=== PATIENT | female | born 1945 | race Caucasian/White ===

== ENCOUNTER 2021-12-12 07:16 | Outpatient (CLI) | payer MEDICARE, OTHER, SELFPAY | END 2021-12-12 07:17 | disposition home or self-care (01) | PROVIDERS: PCP Family Medicine; Visit Provider Family Medicine | DX: M54.16 Radiculopathy, lumbar region (principal); M48.062 Spinal stenosis, lumbar region with neurogenic claudication; M51.36 Other intervertebral disc degeneration, lumbar region | CPT/HCPCS: 62323; J0702; Q9966 ==

== ENCOUNTER 2022-07-03 09:03 | Outpatient (CLI) | payer MEDICARE, OTHER, SELFPAY | END 2022-07-03 09:04 | disposition home or self-care (01) | LOC: INJ CL 09:06 | PROVIDERS: PCP Family Medicine; Visit Provider Family Medicine | DX: M54.16 Radiculopathy, lumbar region (principal); M51.36 Other intervertebral disc degeneration, lumbar region | CPT/HCPCS: 62323; J0702; Q9966 ==

== ENCOUNTER 2023-01-22 09:08 | Outpatient (CLI) | payer MEDICARE, OTHER, SELFPAY | END 2023-01-22 09:09 | disposition home or self-care (01) | LOC: INJ CL 09:10 | PROVIDERS: Visit Provider Family Medicine | DX: M54.16 Radiculopathy, lumbar region (principal); M48.062 Spinal stenosis, lumbar region with neurogenic claudication; M51.36 Other intervertebral disc degeneration, lumbar region | CPT/HCPCS: 62323; J1100; Q9966 ==

== ENCOUNTER 2023-09-10 09:32 | Outpatient (CLI) | payer MEDICARE, OTHER, SELFPAY | END 2023-09-10 09:33 | disposition home or self-care (01) | LOC: INJ CL 09:34 | PROVIDERS: Visit Provider Family Medicine | DX: M54.16 Radiculopathy, lumbar region (principal); M51.36 Other intervertebral disc degeneration, lumbar region | CPT/HCPCS: 62323; J0702; Q9966 ==

== ENCOUNTER 2023-10-30 13:45 | Outpatient (RCR) | payer MEDICARE, OTHER, SELFPAY | END 2024-02-27 23:59 | disposition home or self-care (01) | PROVIDERS: Visit Provider Family Medicine | DX: M54.16 Radiculopathy, lumbar region (principal); M48.062 Spinal stenosis, lumbar region with neurogenic claudication; M43.16 Spondylolisthesis, lumbar region; M53.3 Sacrococcygeal disorders, not elsewhere classified; M76.61 Achilles tendinitis, right leg; R26.9 Unspecified abnormalities of gait and mobility; Z74.09 Other reduced mobility; Z51.89 Encounter for other specified aftercare | CPT/HCPCS: 97110; 97140; 97161 ==

== ENCOUNTER 2023-12-03 09:47 | Outpatient (CLI) | payer MEDICARE, OTHER, SELFPAY | END 2023-12-03 09:48 | disposition home or self-care (01) | LOC: INJ CL 09:49 | PROVIDERS: PCP Family Medicine; Visit Provider Family Medicine | DX: M54.16 Radiculopathy, lumbar region (principal); M51.36 Other intervertebral disc degeneration, lumbar region | CPT/HCPCS: 62323; J0702; Q9966 ==

== ENCOUNTER 2024-04-14 13:05 | Outpatient (CLI) | payer MEDICARE, OTHER, SELFPAY | END 2024-04-14 13:06 | disposition home or self-care (01) | LOC: INJ CL 13:06 | PROVIDERS: PCP Family Medicine; Visit Provider Family Medicine | DX: M54.16 Radiculopathy, lumbar region (principal); M51.369 Other intervertebral disc degeneration, lumbar region without mention of lumbar back pain or lower extremity pain | CPT/HCPCS: 62323; J0702; Q9966 ==

== ENCOUNTER 2024-12-01 13:01 | Outpatient (CLI) | payer MEDICARE, OTHER, SELFPAY | END 2024-12-01 13:02 | disposition home or self-care (01) | LOC: INJ CL 13:02 | PROVIDERS: Visit Provider Family Medicine | DX: M54.16 Radiculopathy, lumbar region (principal); M48.062 Spinal stenosis, lumbar region with neurogenic claudication; M51.369 Other intervertebral disc degeneration, lumbar region without mention of lumbar back pain or lower extremity pain | CPT/HCPCS: 62323; Q9966 ==

== ENCOUNTER 2025-02-10 10:49 | Outpatient (CLI) | payer MEDICARE, OTHER, SELFPAY ==
[2025-02-10 10:55] VITALS: BP 116/74; PULSE 65; RESP 16; TEMP 36.4; O2SAT 94
[2025-02-10 12:05] VITALS: BP 136/57; PULSE 58; RESP 16; O2SAT 94
--- NOTE | 2025-02-10 12:07 | PM.PROC ---
Procedure Note Time Seen by Provider: 11:30 Date Seen: 02/10/25 Provider Contact Time: 12:15 Date of procedure: 02/10/25 Will [facility] bill your pro fee for this procedure?: Yes Procedure: CRYONEUROLYSIS TREATMENT REPORT REFERRING PROVIDER: Kedar Sosa TREATMENT PROVIDER: Iglesia Agudelo PREOPERATIVE DIAGNOSIS: Left knee osteoarthritis POSTOPERATIVE DIAGNOSIS: Left knee osteoarthritis? PROCEDURE: Cryoneurolysis of Multiple Sensory Nerves of the Knee ANESTHESIA: Local INDICATIONS: The patient is a very pleasant 79-year-old female patient with primary osteoarthritis involving the left knee who presents today for cryoneurolysis of multiple sensory nerves to the knee for severe knee pain.?Patient medical history was reviewed. The risks, benefits, treatment alternatives, and complications were discussed with the patient, including but not limited to bleeding, infection, nerve or tissue damage.?Informed consent was obtained. ? PRE-TREATMENT MOTOR ASSESSMENT/PAIN SCORE: Patient was able to demonstrate intact gross motor function with plantarflexion, dorsiflexion, adduction, abduction, hip flexion, and extension of the lower extremity.?Pre-treatment pain score of 5 out of 10 in the left knee. DESCRIPTION OF PROCEDURE: After obtaining informed consent, the patient was brought back to the treatment room and positioned supine on the table.?The left lower extremity was prepped with Chlorhexadine.?We began the procedure by performing our procedural pause.?Once this was completed and verified to be accurate, I began the procedure by identifying the nerves with the use of bedside ultrasound.?After the nerves were identified, the skin was marked and, using 1% lidocaine plain, the area of the nerves were anesthetized. ? After the anesthetic was administered, the Smart Tip 2190 cryoneurolysis needle was inserted into the treatment sites using ultrasound guidance.?Treatment was then initiated on the left lower extremity with the following nerves treated: Superior, superior medial, superior lateral, inferior medial genicular nerves and the infrapatellar branch of the saphenous nerve. At the termination of the treatment, the cryoneurolysis needle was removed with the patient's skin cleansed and Band-Aids and compression dressing applied. Patient tolerated the procedure without any incident or concern.? Patient was then instructed to stand, mobilize the joint, and was examined to ensure gross motor skills were intact. COMPLICATIONS: None POST-TREATMENT PAIN SCORE: 0 out of 10 in the left knee DISPOSITION: Discharge instructions were given to the patient with education on the post-procedure expectations. Patient was instructed to call the Ortho clinic with any post-procedure concerns or questions.
== END 2025-02-10 12:10 | disposition home or self-care (01) ==
LOC: OP CLINIC 10:49
PROVIDERS: Visit Provider Nurse Anesthetist, Certified Registered
DX: M17.12 Unilateral primary osteoarthritis, left knee (principal)
CPT/HCPCS: 64640; 76942; C9809

== ENCOUNTER 2025-02-18 08:43 | Day surgery (SDC) | payer MEDICARE, OTHER, SELFPAY ==
[2025-02-18] VITALS (21 sets, daily range): BP systolic 95–161; BP diastolic 46–98; PULSE 48–86; RESP 16–20; TEMP 36.1–36.8; O2SAT 91–99; BMI 27.3
[2025-02-18] MEDS: LACTATED RINGERS 1000 ML 1,000 ML 100 ML IV ×2 (08:50→12:08)
[2025-02-18] MEDS: SODIUM CHLORIDE 0.9 % (FLUSH) 10 ML SYRINGE IVF (09:15)
[2025-02-18] MEDS: OXYCODONE (CR) 10 MG TAB.ER.12H PO (09:25)
[2025-02-18] MEDS: ACETAMINOPHEN 500 MG TABLET 1000 MG PO ×3 (09:25→23:00)
[2025-02-18] MEDS: MIDAZOLAM HCL 1 MG/ML inj IVP (09:32)
--- NOTE | 2025-02-18 09:34 | SUR.PREOP ---
TIME?OUT:?0930 PT/RN/MDA?VERIFICATION?OF?SURGICAL?SITE,?PROCEDURE,?AND?CONSENT OBTAINED?PRIOR?TO?INVASIVE?PROCEDURE.
--- NOTE | 2025-02-18 10:05 | W.PM.H&PU ---
History & Physical Update History & Physical Update H&P Reviewed and patient assessed: No changes noted
--- NOTE | 2025-02-18 10:07 | CRLHL7_ITS ---
For Patients: As a result of the Century Cures Act, medical imaging exams and procedure reports are released immediately into your electronic medical record. You may view this report before your referring provider. If you have questions, please contact your health care provider. Indication: Postop Technique: Two views left knee Findings/Impression: Hardware from a left total knee arthroplasty is in satisfactory position. Bone alignment is normal. No sign of acute fracture. Postop changes are within normal limits. Chronic changes to the patella. Dictated by Nacho Lisa MD @ 02/19/2025 8:46:58 AM (Electronically Signed)
[2025-02-18] MEDS: TRANEXAMIC ACID 100 MG/ML INJ 1000 MG IV (10:15)
--- NOTE | 2025-02-18 10:38 | P.NB_ITS ---
Nerve Block Nerve Block Time Seen by Provider: 09:30 Date Seen: 02/18/25 Type of block requested by surgeon for post-operative analgesia: geniculars Side: left Time out performed: Yes Verification of patient name: Yes Verification of date of : Yes Site marking: site marked Name of person performing procedure: Magnus Continuous monitoring Was continuous monitoring of O2 sat, B/P, cardiac nurse, recorded every 15 minutes?: Yes Procedure Checklist: sterile prep, needles and gloves Ultrasound guided. Images saved: Yes Medications given in 5ml increments after negative aspiration: Marcaine %: 0.25 mL: 9 Needle gauge: 25 Patient tolerated procedure well: Yes Block Charges Block Charge (with Pro Fee): Genicular Nerve Block
--- NOTE | 2025-02-18 10:39 | P.ANES_ITS ---
Anesthesia Charges Start Date/Time Anesthesia Start Date: 02/18/25 Anesthesia Start Time: 09:58 Stop Date/Time Anesthesia Stop Date: 02/18/25 Anesthesia Stop Time: 12:17 Summary Extremes of Age - Over 70 or under 1: MDA Coding CPT Codes CPT Codes: ANESTH KNEE ARTHROPLASTY - 54241 ([id number]) P3 - PATIENT W/SEVERE SYS DISEASE, QK - MOUNTER AUTOMATIC 2-4 CNCRNT ANES PROC, QX - A AUXILIARY SVC W/ MD MED DIRECTION Additional Codes: Summary - Extremes of Age - Over 70 or under 1: MDA ([id number])
--- NOTE | 2025-02-18 10:39 | P.NB_ITS ---
Nerve Block Nerve Block Time Seen by Provider: 09:30 Date Seen: 02/18/25 Type of block requested by surgeon for post-operative analgesia: adductor canal Side: left Time out performed: Yes Verification of patient name: Yes Verification of date of : Yes Site marking: site marked Name of person performing procedure: Magnus Continuous monitoring Was continuous monitoring of O2 sat, B/P, playground monitor, recorded every 15 minutes?: Yes Procedure Checklist: sterile prep, needles and gloves Ultrasound guided. Images saved: Yes Medications given in 5ml increments after negative aspiration: Marcaine %: 0.25 mL: 15 Needle gauge: 20 Precedex (mcg): 25 Patient tolerated procedure well: Yes Block Charges Block Charge (with Pro Fee): Femoral Nerve Use of Ultrasound Machine for Block: Yes- US Guidance/pain block
--- NOTE | 2025-02-18 10:39 | W.ANESCHARGE ---
Anesthesia Charges Start Date/Time Anesthesia Start Date: 02/18/25 Anesthesia Start Time: 09:58 Stop Date/Time Anesthesia Stop Date: 02/18/25 Anesthesia Stop Time: 12:17 Summary Extremes of Age - Over 70 or under 1: MDA Coding CPT Codes CPT Codes: ANESTH KNEE ARTHROPLASTY - 99745 ([id number]) P3 - PATIENT W/SEVERE SYS DISEASE, QK - COAL GRADER 2-4 CNCRNT ANES PROC, QX - ROCK BREAKER SVC W/ MD MED DIRECTION Additional Codes: Summary - Extremes of Age - Over 70 or under 1: MDA ([id number])
--- NOTE | 2025-02-18 11:29 | P.ORPRC_ITS ---
Procedure Note Date of procedure: 02/18/25 Procedure: PREOPERATIVE DIAGNOSIS: 1. Left knee osteoarthritis, secondary, severe POSTOPERATIVE DIAGNOSIS: 1. Left knee osteoarthritis, secondary, severe PROCEDURE: 1. Left total knee arthroplasty - subvastus; limited tourniquet SURGEON: Jerzy Collins MD. PRODUCT SCIENTIST: Claudia Bell PA-C - Of note, a skilled assistant director of security was critical for this case to aid in patient positioning, tissue retraction, limb manipulation/positioning, and closure. ANESTHESIA: Spinal anesthetic EBL: 50ml IMPLANTS: DePuy J&J all cemented TKA - Attune PS femur size 5 narrow Size 3 tibia 5 mm poly spacer 32 mm patella TOURNIQUET: 30 minutes at 225 torr COMPLICATIONS: None evident INDICATIONS: The patient is a pleasant 79-year-old female who has experienced severe left knee pain and difficulty bearing weight. Workup included x-rays which revealed severe osteoarthrosis in the knee. Given the deformity, the dysfunction, and the pain, as well as the failure of nonoperative management, recommendation was made for surgery. FINDINGS: Full-thickness chondral loss patellofemoral compartment. To lesser degree medial and lateral compartments. Degenerative meniscus tearing medial greater than lateral. Small effusion upon entering the joint. DESCRIPTION OF PROCEDURE: Following a thorough discussion of risks, benefits, and alternatives consent was obtained and the left knee was marked. The patient was brought to the operating room and placed supine on the operating table. Induction of anesthesia was undertaken. 1 g IV Ancef and 1 g tranexamic acid was administered within 1 hr of incision preoperatively. Proper time-out was performed identifying proper patient, site, procedure. The operative extremity was prepped and draped in the appropriate sterile fashion using ChloraPrep after the patient was positioned supine with all bony prominences well padded. A longitudinal, anterior, midline skin incision was made starting approximately 3cm proximal to the superior pole of the patella and advanced distal to the tibial tubercle. A subvastus approach was utilized. A medial subperiosteal sleeve was created with knife, martinez elevator and curved osteotome. The re tropatellar fatpad was resected and the synovium in the suprapatellar pouch excised to visualize the anterior femoral cortex. Femoral preparation was performed via an intramedullary guide. Step drill allowed access into the femoral canal. The distal cutting guide was placed with 5? of valgus and 11 mm cut on the distal femur due to mild chondral layer. Femur was sized using a anterior referencing guide in 3? of external rotation. This found have a best fit with the sizing noted above. The 4 in 1 cutting block was then placed, and the distal femur shaped accordingly. The box cut was then created and the trial implant inserted to confirm appropriate fit. We turned our attention to the proximal tibia. Extramedullary guide was utilized for cutting with the goal of being 90 degree cut from the mechanical axis of the tibia in the varus/valgus plane utilizing tibial crest as the primary alignment. Initially a 4 mm resection was performed from the medial tibial plateau. An additional 2mm did require resection to achieve appropriate balance. Ultimately, balancing was achieved in both flexion and extension in both varus and valgus. The knee was able to achieve full extension as well comfortably. The patella was initially measured and found have a thickness of 20 mm. It was resected back to approximately 14 mm. It was sized to be a best fit with as noted above. This was drilled, trial placed. All trials were placed and found to have an excellent stability and balance. At this stage, trial implants were removed, the knee was thoroughly irrigated with normal saline, and the cement was mixed. After irrigation, the knee was thoroughly dried, and cement placed, with the real tibial and femoral implants placed along with the patella. Trial poly spacer was placed and confirmed to have excellent range of motion and full extension, and the real poly spacer opened and inserted. All extra cement was removed, and a 3 min Betadine soak performed. Finally, a final irrigation round with normal saline was performed. Of note, prior to closure we did encounter Ethibond sutures from the previous patella ORIF type procedure. We did remove these at the month sutures on the inferior pole of the patella arc. Closure performed with 0 PDS and #0 Stratafix for the quad tendon/retinaculum. 2-0 Vicryl/Stratafix for the subcutaneous and 4-0 Monocryl for subcuticular closure. Dressings were applied and the patient was awoken from anesthesia after the tourniquet deflated and transferred the PACU in stable condition. A skilled assistant director of security was critical for this case to aid in patient positioning, tissue retraction, bone exposure, limb manipulation/positioning, patient safety, and closure. PLAN: 1. Weight bear as tolerated operative extremity. 2. 23 hr perioperative antibiotics. 3. Ice. 4. PT/OT consults for ambulation assistance/mobility education. 5. Social work consult for discharge planning. 6. DVT prophylaxis with at SCDs and aspirin twice daily.
--- NOTE | 2025-02-18 12:17 | P.ANES_ITS ---
Anesthesia Charges Start Date/Time Anesthesia Start Date: 02/18/25 Anesthesia Start Time: 09:58 Stop Date/Time Anesthesia Stop Date: 02/18/25 Anesthesia Stop Time: 12:17 Coding CPT Codes CPT Codes: ANESTH KNEE ARTHROPLASTY - 50429 ([id number]) P3 - PATIENT W/SEVERE SYS DISEASE, QK - HUMAN RESOURCES DIRECTOR 2-4 CNCRNT ANES PROC, QX - HUMANITIES AND LANGUAGES PROFESSOR SVC W/ MD MED DIRECTION
--- NOTE | 2025-02-18 12:17 | W.ANESCHARGE ---
Anesthesia Charges Start Date/Time Anesthesia Start Date: 02/18/25 Anesthesia Start Time: 09:58 Stop Date/Time Anesthesia Stop Date: 02/18/25 Anesthesia Stop Time: 12:17 Coding CPT Codes CPT Codes: ANESTH KNEE ARTHROPLASTY - 61725 ([id number]) P3 - PATIENT W/SEVERE SYS DISEASE, QK - NEUROSURGERY PHYSICIAN 2-4 CNCRNT ANES PROC, QX - SAUSAGE LINKER SVC W/ MD MED DIRECTION
--- NOTE | 2025-02-18 15:00 | PC.NURSE ---
Pt arrived to the unit @ 1245. Pt AxOx3, cooperative, and pleasant with cares. LSCTA, RA. CMS remains intact. Able to wiggle toes. Op site remains CDI, active ice applied. PRN medication given for pain. Pt tolerating advanced diet well, eating jello and ice cream. Drinking fluids. LR running @ 75 ml/hr. at bedside. SCDs in place. Call light and belongings within reach.
[2025-02-18] MEDS: CEFAZOLIN 1 GM in 0.9 % SODIUM CHLORIDE Mini-bag 100 ML IVPB (15:43)
--- NOTE | 2025-02-18 15:54 | PM.IMCN1 ---
Date of Consult Patient: Other Consult date: 02/18/25 Requesting Physician: Orthopedics Primary Care Provider: [facility] Consult Narrative Reason for consult: Medical management Narrative: Wendy Masters is a 79 year old female past medical history significant for hypertension, hyperlipidemia, anxiety, macular degeneration, history of stroke 10/01/2022, carotid artery angioplasty 10/03/2022 is POD#0 s/p left total knee arthroplasty, Dr. Collins. There have been no perioperative complications or nursing concerns reported. Estimated total blood loss documented as 50 ml. Updated and reviewed the active medical problems, past medical history, past surgical history, social history, allergies and medications in our electronic EMR. Postoperatively, patient is seen sitting up in bed, ordering dinner. Appears very comfortable but reports her pain is increasing by the second. Denies headache or dizziness. Denies chest pain or shortness of breath. Tolerating orals without nausea or vomiting. Review of Systems Narrative: REVIEW OF SYSTEMS: Complete review of systems performed and negative unless otherwise stated in HPI or below. PFSH PFS Medical History Ischemic stroke (~09/2022) ?I63.9 - Cerebral infarction, unspecified (ICD-10) Mixed hyperlipidemia ?E78.2 - Mixed hyperlipidemia (ICD-10) Primary hypertension ?I10 - Essential (primary) hypertension (ICD-10) Generalized anxiety disorder ?F41.1 - Generalized anxiety disorder (ICD-10) Major depression in full remission ?F32.5 - Major depressive disorder, single episode, in full remission (ICD-10) Osteopenia ?M85.80 - Other specified disorders of bone density and structure, unspecified site (ICD-10) Macular degeneration (~2018) ?H35.30 - Unspecified macular degeneration (ICD-10) History of eczema ?Z87.2 - Personal history of diseases of the skin and subcutaneous tissue (ICD-10) History of sinus tachycardia (2010) ?Z86.79 - Personal history of other diseases of the circulatory system (ICD-10) History of TMJ disorder ?Z87.39 - Personal history of other diseases of the musculoskeletal system and connective tissue (ICD-10) Seasonal allergies ?J30.2 - Other seasonal allergic rhinitis (ICD-10) Chronic low back pain ?M54.50 - Low back pain, unspecified (ICD-10) ?G89.29 - Other chronic pain (ICD-10) Surgical History History of left knee replacement (02/18/25) ?Z96.652 - Presence of left artificial knee joint (ICD-10) History of carotid endarterectomy ?Z98.890 - Other specified postprocedural states (ICD-10) History of phacoemulsification of cataract of both eyes with intraocular lens implantation (2015) ?Z98.41 - Cataract extraction status, right eye (ICD-10) ?Z98.42 - Cataract extraction status, left eye (ICD-10) ?Z96.1 - Presence of intraocular lens (ICD-10) History of total abdominal hysterectomy and bilateral salpingo-oophorectomy (1994) ?Z90.710 - Acquired absence of both cervix and uterus (ICD-10) ?Z90.722 - Acquired absence of ovaries, bilateral (ICD-10) ?Z90.79 - Acquired absence of other genital organ(s) (ICD-10) History of ankle surgery (1981) ?Z98.890 - Other specified postprocedural states (ICD-10) History of reduction mammoplasty (~1998) ?Z98.890 - Other specified postprocedural states (ICD-10) History of arthroscopy of left knee (1981) ?Z98.890 - Other specified postprocedural states (ICD-10) History of left breast biopsy (03/02/15) ?Z98.890 - Other specified postprocedural states (ICD-10) Family History Father Coronary artery disease Brother Coronary artery disease Mother Leukemia Social History Narrative: . Retired. 2 children. Nonsmoker. No EtOH. What is your current living situation?: I presently have a place to live Problems where you live: no known problems Problems where you live details: na In the past 12 months, utilities in danger of being shut off: no In past 12 months, lack of transportation kept you from medical appts, meetings, work, or getting things needed for daily living: no In the past 12 mos, have been you worried that your food would run out before you had money to buy more?: never true In the past 12 mos, the food you bought just didn't last and you didn't have money to buy more?: never true Smoking Status: Former smoker How often do you have a drink containing alcohol: never AUDIT-C Alcohol total score: 0 Non-prescribed substance use: denies use Caffeine: Yes How often does anyone, including family, friends and others, physically hurt you: never How often does anyone, including family, friends and others, insult or talk down to you: never How often does anyone, including family, friends and others, threaten you with harm: never How often does anyone, including family, friends and others, scream or curse at you: never service: No Meds Home Medications and Allergies Home Medications ?Medication ?Instructions ?Recorded ?Confirmed ?Type buspirone 15 mg tablet 15 mg PO BID 04/18/22 02/18/25 History cyclobenzaprine 10 mg tablet 5 - 10 mg PO HS PRN 04/18/22 02/18/25 History estradiol 0.01% (0.1 mg/gram) 1 g vaginal MOWEFR 04/18/22 02/18/25 History vaginal cream lisinopril 10 mg tablet 10 mg PO DAILY 04/18/22 02/18/25 History oxycodone 5 mg tablet 5 mg PO TID PRN 04/18/22 02/18/25 History sertraline 100 mg tablet 200 mg PO QDAY 04/18/22 02/18/25 History triamcinolone acetonide 0.1 % 1 applic topical BID PRN 04/18/22 02/18/25 History topical cream evolocumab 140 mg/mL subcutaneous 140 mg subcut Q14D 05/13/24 02/18/25 History pen injector (Dillon Pickard) nitroglycerin 0.4 mg sublingual 0.4 mg sublingual Q5M PRN 05/13/24 02/18/25 History tablet carvedilol 12.5 mg tablet 12.5 mg PO BID 09/23/24 02/18/25 History gabapentin 600 mg tablet 600 mg PO TID 09/23/24 02/18/25 History rosuvastatin 20 mg tablet 20 mg PO HS 09/23/24 02/18/25 History Shower Chair #1 ea 02/08/25 Rx Walker- 2 Wheels #1 ea 02/08/25 Rx cetirizine 10 mg tablet 10 mg PO DAILY 02/18/25 02/18/25 History coenzyme Q10 100 mg capsule (Co 100 mg PO DAILY 02/18/25 02/18/25 History Q-10) hydrocodone 7.5 mg-acetaminophen 1 tab PO Q4H PRN 02/18/25 02/18/25 History 325 mg tablet ipratropium bromide 21 mcg (0.03 2 spray intranasal BID 02/18/25 02/18/25 History %) nasal spray Allergies Allergy/AdvReac Type Severity Reaction Status Date / Time Sulfa (Sulfonamide Allergy Mild Gastrointestinal Verified 02/18/25 09:21 Antibiotics) Upset & Leg cramps azithromycin Allergy Unknown Rash Verified 02/18/25 09:21 erythromycin base (From Allergy Unknown Unknown Verified 02/18/25 09:21 Erythrocin) paroxetine Allergy Unknown Verified 02/18/25 09:21 pollen extracts Allergy Verified 02/18/25 09:21 simvastatin AdvReac Unknown myalgias Verified 02/18/25 09:21 Exam Narrative: Exam Narrative: PHYSICAL EXAM General: Pleasant, conversant, NAD HEENT: Normocephalic, atraumatic, sclera white, EOMI, oral mucosa moist Cardiovascular: RRR, S1S2. No pitting edema Pulmonary: CTA bilaterally without rhonchi, rales, expiratory wheezes. No dyspnea Neurological: Alert, answering questions appropriately, cranial nerves intact, no focal findings Extremities: No gross joint deformity or swelling. Postoperative dressing in place, dry. Neurovascularly intact Skin: Warm, dry. Const: Vital Signs, click to edit/add: Vital Signs - 24 hr 02/18/25 09:15 02/18/25 12:15 02/18/25 12:20 Temperature 97.2 F L 97.0 F L Pulse Rate 66 50 L 51 L Pulse Rate [Pulse Oximeter] Respiratory Rate 16 16 16 Blood Pressure 103/47 L 98/46 L 112/52 L Blood Pressure [Ri ght Arm] Pulse Oximetry 91 94 93 Oxygen Delivery Me thod Room Air Nasal Cannula Nasal Cannula Oxygen Flow Rate 4 4 Fraction of Inspir ed Oxygen 100 100 02/18/25 12:25 02/18/25 12:30 02/18/25 12:35 Temperature Pulse Rate 52 L 52 L 50 L Pulse Rate [Pulse Oximeter] Respiratory Rate 16 16 16 Blood Pressure 122/80 129/61 136/61 Blood Pressure [Ri ght Arm] Pulse Oximetry 96 95 96 Oxygen Delivery Me thod Room Air Room Air Room Air Oxygen Flow Rate Fraction of Inspir ed Oxygen 02/18/25 12:40 02/18/25 12:45 02/18/25 13:00 Temperature 97.0 F L 97.2 F L 97.5 F L Pulse Rate 48 L Pulse Rate [Pulse Oximeter] 56 L 53 L Respiratory Rate 16 16 16 Blood Pressure 127/64 Blood Pressure [Ri ght Arm] 116/50 L 115/47 L Pulse Oximetry 99 95 96 Oxygen Delivery Me thod Room Air Room Air Room Air Oxygen Flow Rate Fraction of Inspir ed Oxygen 02/18/25 13:15 02/18/25 13:30 02/18/25 13:45 Temperature 97.7 F 97.7 F 98.1 F Pulse Rate Pulse Rate [Pulse Oximeter] 51 L 56 L 51 L Respiratory Rate 16 16 16 Blood Pressure Blood Pressure [Ri ght Arm] 121/60 102/70 115/55 L Pulse Oximetry 96 94 93 Oxygen Delivery Me thod Room Air Room Air Room Air Oxygen Flow Rate Fraction of Inspir ed Oxygen 02/18/25 14:15 02/18/25 14:45 Temperature 97.8 F 97.9 F Pulse Rate Pulse Rate [Pulse Oximeter] 53 L 59 L Respiratory Rate 18 18 Blood Pressure Blood Pressure [Ri ght Arm] 126/60 119/48 L Pulse Oximetry 94 96 Oxygen Delivery Me thod Room Air Room Air Oxygen Flow Rate Fraction of Inspir ed Oxygen Assessment and Plan Assessment and plan (1) Osteoarthritis of left knee: Problem comment: -POD#0 s/p L TKA, Dr. Collins -perioperative management including pain management and anticoagulation per Orthopedic surgery -continue home gabapentin -encourage postoperative pulmonary hygiene -PT OT consults -plan to discharge home with spouse tomorrow Status: Acute (2) Mixed hyperlipidemia: Problem comment: -resume statin at discharge Status: Acute (3) Primary hypertension: Problem comment: -resume lisinopril at discharge -has been bradycardic postoperatively, heart rate in the 50s now improving to 60s, hold carvedilol and resume at discharge Status: Acute Total Time Spent Total Time Spent: Today I spent 55 minutes seeing the patient, reviewing Expanse and EPIC notes/diagnostics, discussing the care plan with our care time that includes social work, PT/OT, pharmacy, RT, correction and documenting my impressions and plan in the medical record.
[2025-02-18] MEDS: SENNOSIDES 1 TAB TABLET 2 TAB PO (20:07)
[2025-02-18] MEDS: BUSPIRONE 10 MG TABLET 15 MG PO (20:08)
[2025-02-18] MEDS: GABAPENTIN 600 MG TABLET PO (20:09)
[2025-02-18] MEDS: ASPIRIN 81 MG TABLET EC PO (20:09)
--- NOTE | 2025-02-18 23:47 | PC.NURSE ---
Event Note 258 Patient requested to go to the bathroom. Gait belt in place, grippy socks in place and patient walked assisted by blurb writer to the bathroom. Patient then requested that blurb writer went to her belongings bag and search for a feminine pad for her. Sealer Operator brought bag to the bathroom and handed the feminine pad to patient. Sealer Operator proceeded to tell patient to call when ready. Bathroom door was left opened and blurb writer was three feet from patient when patient stood up without warning and began to fall. Sealer Operator was able to hold patient's gait belt and waist and proceeded to lower patient down to the floor on her back. Patient did not hit her head. No lacerations noted on skin either. Staff assist was called and responded by charge nurse Camryn BONILLA, Rebeca Boles RN and Rosalie GLEZ. Patient was then helped to a wheel chair and taken back to bed. Ortho PA was notified (JOVANA Landaverde) and no XRays were ordered. PA stated that since patient had not fallen on her knees, but backwards, no XRays were needed. Advised to notify JOVANA Rodgers for morning rounds. Patient currently resting in bed. Call light within reach.
[2025-02-19] MEDS: CEFAZOLIN 1 GM in 0.9 % SODIUM CHLORIDE Mini-bag 100 ML IVPB ×2 (00:09→07:52)
[2025-02-19 03:00] VITALS: BP 124/56; PULSE 71; RESP 18; TEMP 36.3; O2SAT 98
[2025-02-19] MEDS: ACETAMINOPHEN 500 MG TABLET 1000 MG PO ×2 (04:19→11:58)
[2025-02-19 07:00] VITALS: BP 108/78; PULSE 93; RESP 16; TEMP 37; O2SAT 100
--- NOTE | 2025-02-19 08:03 | PC.NURSE ---
End of Shift Note 258 Patient was very pleasant and cooperative throughout shift. Patient had a fall while going to the bathroom. Incident report filed. PA Ortho food and beverage operations manager notified. Moves assist of 1 gait belt and walker. VSS. Afebrile. Lavender patch applied to patient's gown to help with relaxation. Patient currently sitting on recliner eating breakfast. Patient uses call light appropriately.
--- NOTE | 2025-02-19 08:08 | PM.ORPN ---
Subjective Subjective Time Seen by Provider: 08:08 Date Seen: 02/19/25 Principal diagnosis: Status post left knee replacement Interval history: Rosemarie is comfortable at rest in the recliner. She has not had any episodes of fainting since last night. She states she has been ambulating and moving about her room without problems since. Ortho Exam Narrative Exam Narrative: Alert and oriented x3. Patient is in no acute distress. Converses without labored breathing. Hearing is grossly intact. Ambulates with a walker. Examination of the left knee shows the dressing is intact. No erythema or warmth or sign of infection. Mild anterior knee hematoma. CMS intact left lower extremity. She is able to straight leg raise. Calves are soft and nontender. No pretibial edema. Const Vital Signs, click to edit/add: Vital Signs - 24 hr 02/18/25 09:15 02/18/25 12:15 02/18/25 12:20 Temperature 97.2 F L 97.0 F L Pulse Rate 66 50 L 51 L Pulse Rate [Pulse Oximeter] Respiratory Rate 16 16 16 Blood Pressure 103/47 L 98/46 L 112/52 L Blood Pressure [Right Arm] Pulse Oximetry 91 94 93 Oxygen Delivery Method Room Air Nasal Cannula Nasal Cannula Oxygen Flow Rate 4 4 Fraction of Inspired Oxygen 100 100 02/18/25 12:25 02/18/25 12:30 02/18/25 12:35 Temperature Pulse Rate 52 L 52 L 50 L Pulse Rate [Pulse Oximeter] Respiratory Rate 16 16 16 Blood Pressure 122/80 129/61 136/61 Blood Pressure [Right Arm] Pulse Oximetry 96 95 96 Oxygen Delivery Method Room Air Room Air Room Air Oxygen Flow Rate Fraction of Inspired Oxygen 02/18/25 12:40 02/18/25 12:45 02/18/25 13:00 Temperature 97.0 F L 97.2 F L 97.5 F L Pulse Rate 48 L Pulse Rate [Pulse Oximeter] 56 L 53 L Respiratory Rate 16 16 16 Blood Pressure 127/64 Blood Pressure [Right Arm] 116/50 L 115/47 L Pulse Oximetry 99 95 96 Oxygen Delivery Method Room Air Room Air Room Air Oxygen Flow Rate Fraction of Inspired Oxygen 02/18/25 13:15 02/18/25 13:30 02/18/25 13:45 Temperature 97.7 F 97.7 F 98.1 F Pulse Rate Pulse Rate [Pulse Oximeter] 51 L 56 L 51 L Respiratory Rate 16 16 16 Blood Pressure Blood Pressure [Right Arm] 121/60 102/70 115/55 L Pulse Oximetry 96 94 93 Oxygen Delivery Method Room Air Room Air Room Air Oxygen Flow Rate Fraction of Inspired Oxygen 02/18/25 14:15 02/18/25 14:45 02/18/25 15:00 Temperature 97.8 F 97.9 F Pulse Rate Pulse Rate [Pulse Oximeter] 53 L 59 L Respiratory Rate 18 18 Blood Pressure Blood Pressure [Right Arm] 126/60 119/48 L Pulse Oximetry 94 96 96 Oxygen Delivery Method Room Air Room Air Oxygen Flow Rate Fraction of Inspired Oxygen 02/18/25 15:00 02/18/25 15:00 02/18/25 15:32 Temperature 97.6 F Pulse Rate Pulse Rate [Pulse Oximeter] 86 63 Respiratory Rate 16 18 18 Blood Pressure Blood Pressure [Right Arm] 121/56 L Pulse Oximetry 93 93 Oxygen Delivery Method Room Air Room Air Oxygen Flow Rate Fraction of Inspired Oxygen 02/18/25 16:32 02/18/25 17:32 02/18/25 18:25 Temperature 97.6 F 97.8 F 97.8 F Pulse Rate Pulse Rate [Pulse Oximeter] 63 86 86 Respiratory Rate 18 18 18 Blood Pressure Blood Pressure [Right Arm] 119/75 99/53 L 95/48 L Pulse Oximetry 96 93 92 Oxygen Delivery Method Room Air Room Air Room Air Oxygen Flow Rate Fraction of Inspired Oxygen 02/18/25 19:00 02/18/25 23:00 02/18/25 23:00 Temperature 98.3 F 97.5 F L Pulse Rate Pulse Rate [Pulse Oximeter] 72 82 Respiratory Rate 20 18 Blood Pressure Blood Pressure [Right Arm] 123/57 L 161/98 H Pulse Oximetry 93 95 95 Oxygen Delivery Method Room Air Room Air Oxygen Flow Rate Fraction of Inspired Oxygen 02/18/25 23:00 02/19/25 03:00 Temperature 97.3 F L Pulse Rate Pulse Rate [Pulse Oximeter] 71 Respiratory Rate 18 Blood Pressure Blood Pressure [Right Arm] 124/56 L Pulse Oximetry 95 98 Oxygen Delivery Method Room Air Room Air Oxygen Flow Rate Fraction of Inspired Oxygen Assessment and Plan Assessment and plan (1) History of left knee replacement: Problem details: Left total knee arthroplasty - subvastus; limited tourniquet. Dr. Collins, 02/18/25 Status: Acute Assessment and Plan: Plan for discharge is today to home if they meet discharge criteria. DVT prophylaxis includes aspirin 81 mg twice daily x1 month, Compression stockings as needed for swelling. Frequent ambulation, every hour throughout the day. Remove dressing in 1 week. Observe wound and phone Orthopedics with any questions or concerns Return to clinic in 1-2 weeks for a wound check as scheduled Return to clinic in 6 weeks with surgeon Minimize narcotic use. Wean off and discontinue soon as possible. Activities as tolerated. No strenuous activity. Outpatient physical therapy as scheduled. Ice and elevate the operative extremity. No restriction on ice. Her home list includes oxycodone and hydrocodone. She says that she takes hydrocodone for her back and oxycodone for her knee. She had Iovera prior to joint replacement which relieved her pain, therefore I am confident this will give her some pain relief postoperatively and she is prescribed a refill of oxycodone for she states she only has a couple pills left of that from Dr. Borja. She will hold on the hydrocodone. She will have Dr. Borja prescribed her pain medications after this prescription of oxycodone from me. Geophysicist to consult to be sure she is safe to go home.
--- NOTE | 2025-02-19 08:19 | PC.SOCIAL ---
Met briefly with pt and friend in room regarding d/c plan. Pt lives in [place] and plans to return home at discharge. Pt's friend, Cisco, will assist her as needed. He had knee surgery earlier this year, and pt took care of him, so they are aware of the recovery and assistance needs. Pt will have access to all the medical equipment her friend used after surgery. Pt has no concerns about returning home at discharge. balcony worker to follow up if needed.
[2025-02-19] MEDS: ASPIRIN 81 MG TABLET EC PO (09:24)
[2025-02-19] MEDS: GABAPENTIN 600 MG TABLET PO (09:24)
[2025-02-19] MEDS: SENNOSIDES 1 TAB TABLET 2 TAB PO (09:24)
[2025-02-19] MEDS: BUSPIRONE 10 MG TABLET 15 MG PO (09:26)
--- NOTE | 2025-02-19 12:48 | PC.NURSE ---
pt a/o x4, transfers with SBA, Pain reported 3-7/10 throughout shift. PRN medication and ice given for pain management. D/C education given to pt both written and verbal. Pt had all questions and concerns answered by real estate underwriter. IV removed cath intact. Pt left via wheelchair 12:20
== END 2025-02-19 12:20 | disposition home or self-care (01) ==
LOC: OR 08:45 → MEDSURG 08:45
PROVIDERS: Visit Provider Orthopaedic Surgery Sports Medicine
PROC: (CPT 27447; principal; 2025-02-18 11:00)
DX: M17.12 Unilateral primary osteoarthritis, left knee (principal); G89.18 Other acute postprocedural pain; F41.1 Generalized anxiety disorder; I10 Essential (primary) hypertension; M85.80 Other specified disorders of bone density and structure, unspecified site; H35.30 Unspecified macular degeneration; E78.2 Mixed hyperlipidemia; Z86.73 Personal history of transient ischemic attack (TIA), and cerebral infarction without residual deficits
CPT/HCPCS: 27447; 01402; 64447; 64454; 73560; 76942; 97110; 97116; 97161; 97165; 97535; 99100; A9270; C1776; J0665; J0690; J1100; J1171; J2250; J2405; J2704; J3010; J3490; J7120